=== PATIENT | female | born 1950 | race Caucasian/White ===

== ENCOUNTER 2021-03-04 09:36 | Day surgery (SDC) | payer MEDICARE, SELFPAY ==
[2021-02-25 20:05] VITALS: BMI 27.8
--- NOTE | 2021-03-03 08:48 | P.CONAN_ITS ---
Documented by User: Fay Bai 03/03/21 08:49 HPI - Anesthesia Eval Consult details Narrative: 70yo F for Colonoscopy FOR[facility], LATER [facility] Past Medical History Medical History Anxiety Depression Elevated cholesterol GERD (gastroesophageal reflux disease) Hypertension Surgical History Surgical History H/O repair of right rotator cuff H/O: hysterectomy History of colonoscopy Social History Social History Smoking Status: Never smoker Second Hand Smoke Exposure: No Use of substances other than those prescribed or required for medical reasons: No Are you DNR?: No Advance Directives: No Advance Directives Information Provided: No Advance Directives on File: No Recently lost weight without trying: No Nutrition Risks: No Nutritional Risk Meds Allergies Allergy/AdvReac Type Severity Reaction Status Date / Time No Known Allergies Allergy Verified 03/03/21 12:40 Home Medications Medication Instructions Recorded Confirmed Last Taken Type cholecalciferol (vitamin D3) 50 mcg PO DAILY 02/25/21 02/25/21 Unknown History [Vitamin D3] ibuprofen 200 mg PO Q6H PRN 02/25/21 02/25/21 Unknown History omeprazole 20 mg PO DAILY 02/25/21 02/25/21 Unknown History rosuvastatin 20 mg PO BEDTIME 02/25/21 02/25/21 Unknown History sertraline 50 tab PO DAILY 02/25/21 02/25/21 Unknown History triamterene-hydrochlorothiazid 1 tab PO DAILY 02/25/21 02/25/21 Unknown History Exam Exam Date and Time: March 03, 2021 0848 Height,Weight and Vital Signs: Height 5 ft 8 in Weight 83.007 kg Assessment and Plan Assessment Anesthesia Assessment: Chart Reviewed Documented by User: Denise Gallegos 03/04/21 09:59 [facility] Past Medical History Medical History Anxiety Depression Elevated cholesterol GERD (gastroesophageal reflux disease) Hypertension Family History Family history of problems with anesthesia: No Surgical History Surgical History H/O repair of right rotator cuff H/O: hysterectomy History of colonoscopy History of Problems with Anesthesia: No Social History Social History Smoking Status: Never smoker Second Hand Smoke Exposure: No Use of substances other than those prescribed or required for medical reasons: No Are you DNR?: No Advance Directives: No Advance Directives Information Provided: No Advance Directives on File: No Recently lost weight without trying: No Nutrition Risks: No Nutritional Risk Meds Allergies Allergy/AdvReac Type Severity Reaction Status Date / Time No Known Allergies Allergy Verified 03/03/21 12:40 Home Medications Medication Instructions Recorded Confirmed Last Taken Type cholecalciferol (vitamin D3) 50 mcg PO DAILY 02/25/21 02/25/21 Unknown History [Vitamin D3] ibuprofen 200 mg PO Q6H PRN 02/25/21 02/25/21 Unknown History omeprazole 20 mg PO DAILY 02/25/21 02/25/21 Unknown History rosuvastatin 20 mg PO BEDTIME 02/25/21 02/25/21 Unknown History sertraline 50 tab PO DAILY 02/25/21 02/25/21 Unknown History triamterene-hydrochlorothiazid 1 tab PO DAILY 02/25/21 02/25/21 Unknown History Exam Height,Weight and Vital Signs: Vital Signs Temp Pulse Resp BP Pulse Ox 03/04/21 09:46 98.9 F 81 15 152/90 H 98 Airway Mallampati Class: II TM Dist: >3cm Neck ROM: Limited (Limited side to side. Extension OK) Heart: RRR Lungs: CTAB Assessment and Plan Assessment Anesthesia Assessment: Anesthesia Plan Discussed and Chart Reviewed Final Anesthetic Review NPO: Yes ASA Class: II Final Preanesthetic Review: No Changes in Pt Med Stat, Meds/Allgs Chart Reviewed, Consent Obtained/Reviewed and Anes Risks/Benef Reviewed Patient Risk: Low Procedure Risk: Low Assessment/Block/Sedation in SS: Assess/Block/Sedation-SS Anesthetic Plan Anesthetic Plan: MAC: Disposition: Standard PACU
[2021-03-04 09:46] VITALS: BP 152/90; PULSE 81; RESP 15; TEMP 37.2; O2SAT 98
[2021-03-04] MEDS: Lactated Ringers 1,000 ML 100 ML IVCONT (10:02)
--- NOTE | 2021-03-04 10:21 | MHC.SHP ---
Pre-Procedural Eval Section A The patient is an INPATIENT: No Changes since office visit: No Cold of Flu in the past 2 weeks, No New Medical Problems, No Changes in Medication and No Patient answered all questions The History & Physical has been completed within 30 days and I have reviewed it.: Yes Section B Chief Complaint: screening,bleeding Allergies: Allergies Allergy/AdvReac Type Severity Reaction Status Date / Time No Known Allergies Allergy Verified 03/03/21 12:40 Plan I have reviewed the history and physical and performed a pertinent physical examination on my patient. No changes have occurred unless specified.
--- NOTE | 2021-03-04 10:44 | PM.OP ---
Brief Operative Note Date of Service: 03/04/21 Pre-op diagnosis: rectal bleeding Post-op diagnosis: same Procedure: colo Surgeon: Jorge Portillo Anesthesia: MAC Was an Card Tape Converter Operator used for this Procedure?: No Estimated blood loss (mL): 0 Pathology: none sent Condition: stable Disposition: PACU
[2021-03-04 10:47] VITALS: BP 93/50; PULSE 68; RESP 14; TEMP 36.6; O2SAT 98
[2021-03-04 11:02] VITALS: BP 105/55; PULSE 57; RESP 16; TEMP 36.6; O2SAT 98
--- NOTE | 2021-03-04 21:33 | OP_ITS ---
SURGEON: Jorge Portillo MD INDICATIONS: Rectal bleeding. PREOPERATIVE DIAGNOSIS: POSTOPERATIVE DIAGNOSIS: PROCEDURE PERFORMED: Colonoscopy to the terminal ileum. ESTIMATED BLOOD LOSS: COMPLICATIONS: ANESTHESIA: ASSISTANTS: SPECIMENS: MEDICATIONS: Monitored anesthesia care. DESCRIPTION OF PROCEDURE: History and physical performed. The risks and benefits of the procedure were explained to the patient. Informed consent was obtained. The patient was placed in the left lateral decubitus position. A digital rectal exam was performed and was found to be normal. The Olympus pediatric video colonoscope was introduced into the rectum and advanced to the cecum without difficulty. The cecum was identified by transillumination, palpation, and identification of ileocecal valve. Examination was performed and the scope was removed. She tolerated the procedure well and was taken to recovery area in stable condition. FINDINGS: The terminal ileum was briefly examined and appeared normal. The visualized colonic mucosa was within normal limits without evidence of masses or ulcers. No polyps were identified. There were some hypertrophic anal papillae and small internal hemorrhoids on retroflexed examination. IMPRESSION: Normal colonoscopy. RECOMMENDATION: 1. Follow up as needed. 2. Repeat colonoscopy is recommended in 5 years because of a history of adenomatous colon polyps. MD RAYSHAWN Cha/ZAFAR / [id number]
== END 2021-03-04 11:53 | disposition home or self-care (01) ==
PROVIDERS: PCP Internal Medicine; Visit Provider Internal Medicine Gastroenterology
PROC: 0DJD8ZZ Inspection of Lower Intestinal Tract, Via Natural or Artificial Opening Endoscopic (ICD-10-PCS; CPT 45378; principal; 2021-03-04 10:50)
DX: Z12.11 Encounter for screening for malignant neoplasm of colon (principal); Z86.010 Personal history of colon polyps; K62.89 Other specified diseases of anus and rectum; K62.5 Hemorrhage of anus and rectum; K64.8 Other hemorrhoids; K21.00 Gastro-esophageal reflux disease with esophagitis, without bleeding; I10 Essential (primary) hypertension; F32.9 Major depressive disorder, single episode, unspecified; Z79.899 Other long term (current) drug therapy; Z79.1 Long term (current) use of non-steroidal anti-inflammatories (NSAID)
CPT/HCPCS: G0105

== ENCOUNTER 2023-11-30 09:03 | Day surgery (SDC) | payer MEDICARE, SELFPAY ==
[2023-11-25 08:53] VITALS: BMI 26.0
[2023-11-30 09:16] VITALS: BMI 26.4
[2023-11-30 09:17] VITALS: BMI 26.4
[2023-11-30 09:27] VITALS: BP 170/73; PULSE 86; RESP 16; TEMP 37.3; O2SAT 97
[2023-11-30] MEDS: Lactated Ringers 1,000 ML 80 ML IVCONT (09:41)
--- NOTE | 2023-11-30 09:43 | MHC.SHP ---
Pre-Procedural Eval Section A - 24 Hr Update-Section A only Date of Service: 11/30/23 Section B - Complete if H&P > 30 days Chief Complaint: Diaphragmatic hernia,gerd, Details of Present Illness: see H&P no changes Relevant Family History (Specify if Yes): No Relevant Social History: None Present Medications: see Short Stay Collaborative assessment Medical History: No relevant PMH History of Previous Operations: No relevant previous surgery Allergies: Allergies Allergy/AdvReac Type Severity Reaction Status Date / Time No Known Allergies Allergy Verified 03/03/21 12:40 Review of Systems Sugical H&P ROS: Negative: Constitution, Cardiovascular, Respiratory, Neurological, Psychiatric, Hem-Onc, Allergic/Immunologic, Gastrointestinal, Genitourinary, Musculoskeletal, Integumentary, Endocrine and Eyes/Ears/Nose/Throat Exam Surgical H&P Exam: Normal: HEENT, Normal: Heart, Normal: Lungs, Normal: Extremities, Normal: Abdomen, Normal: Skin and Normal: Neurological Plan Diagnosis/Plan: Unchanged I have reviewed the history and physical and performed a pertinent physical examination on my patient. No changes have occurred unless specified. Time Spent With Patient Time: Total time managing care of this patient today ____ minutes.
--- NOTE | 2023-11-30 09:55 | PC.NURSE ---
delay in room due to upper scope not available
[2023-11-30 11:28] VITALS: BP 117/66; PULSE 84; RESP 16; TEMP 36.7
--- NOTE | 2023-11-30 11:38 | OP_ITS ---
DATE OF SERVICE: 11/30/2023 SURGEON: Jorge Portillo MD INDICATIONS: Abnormal x-ray of the GI tract. PREOPERATIVE DIAGNOSIS: POSTOPERATIVE DIAGNOSIS: PROCEDURE PERFORMED: Upper endoscopy with biopsy. ESTIMATED BLOOD LOSS: COMPLICATIONS: ANESTHESIA: Monitored anesthesia care. ASSISTANTS: SPECIMENS: DESCRIPTION OF PROCEDURE: A history and physical were performed. The risks and benefits of the procedure were explained to the patient. Informed consent was obtained. The patient was placed in the left lateral decubitus position. The Olympus video gastroscope was introduced into the esophagus, stomach, and duodenum. Examination was performed. The scope was removed. She tolerated the procedure well, was returned to recovery area in stable condition. FINDINGS: The esophagus was normal. Stomach: There was a 6 cm hiatal hernia that prolapse with coughing. There was no evidence of malignancy. Duodenum: The bulb and 2nd portion were normal. Biopsies were obtained from the EG junction and throughout the stomach. IMPRESSION: 1. Hiatal hernia. 2. Gastroesophageal reflux disease. 3. Abnormal x-ray of the GI tract. RECOMMENDATION: Follow up the biopsy results. MD RAYSHAWN Cha/ZAFAR / [id number]
[2023-11-30 11:43] VITALS: BP 133/59; PULSE 83; RESP 20; TEMP 37; O2SAT 100
== END 2023-11-30 12:30 | disposition home or self-care (01) ==
PROVIDERS: PCP Internal Medicine; Visit Provider Internal Medicine Gastroenterology
PROC: 0DJ08ZZ Inspection of Upper Intestinal Tract, Via Natural or Artificial Opening Endoscopic (ICD-10-PCS; CPT 43235; principal; 2023-11-30 10:20)
DX: R93.3 Abnormal findings on diagnostic imaging of other parts of digestive tract (principal); K21.9 Gastro-esophageal reflux disease without esophagitis; K44.9 Diaphragmatic hernia without obstruction or gangrene; R05.9 Cough, unspecified; D24.1 Benign neoplasm of right breast; Z92.3 Personal history of irradiation; I10 Essential (primary) hypertension; I34.1 Nonrheumatic mitral (valve) prolapse; E78.5 Hyperlipidemia, unspecified; E04.2 Nontoxic multinodular goiter; M81.0 Age-related osteoporosis without current pathological fracture; F41.8 Other specified anxiety disorders; Z79.899 Other long term (current) drug therapy; Z79.1 Long term (current) use of non-steroidal anti-inflammatories (NSAID); Z98.890 Other specified postprocedural states
CPT/HCPCS: 43239; 88305; 88313; 88342; J2704